=== PATIENT | female | born 1965 | race Caucasian/White ===

== ENCOUNTER 2019-10-30 11:17 | Emergency (ER) | payer BC ==
[~2019-10-30] VITALS: Ht 167.6 cm; Wt 74.8 kg
--- NOTE | 2019-10-30 11:25 | NUR ---
Patient ambulated with stable gait. Speech is clear, speaks in complete sentences. No acute neuro deficits. Patient came for c/o GARCIA/Migraine, denies any n/v, but reports sensitivity to light. Respiratory even and unlabored, no cough no sob. Patient in bed at lowest position, sr upx2, call light within reach. Fall and safety precautions implemented per protocol.
[2019-10-30] MEDS ORDERED: ALPR0.5T8 PO (11:30)
[2019-10-30] MEDS ORDERED: IV NORMAL SALINE 500 ML BAG IV ONE (11:45)
[2019-10-30] MEDS ORDERED: DEXAMETHASONE SOD PHOSPHATE 4 MG INJ IV ONE (11:45)
[2019-10-30] MEDS ORDERED: LORAZEPAM 2 MG/1 ML VIAL IV ONE (11:45)
[2019-10-30] MEDS ORDERED: PROCHLORPERAZINE EDISYLATE 10 MG/2 ML VIAL IV ONE (11:45)
[2019-10-30] MEDS ORDERED: PROCHLORPERAZINE EDISYLATE 10 MG/2 ML VIAL ONE (11:46)
[2019-10-30] MEDS ORDERED: DEXAMETHASONE SOD PHOSPHATE 10 MG INJ ONE (11:46)
[2019-10-30] MEDS ORDERED: LORAZEPAM 2 MG/1 ML VIAL ONE (11:47)
[2019-10-30 12:05] LABS: BASOPHILS % (AUTO) 0.6 % (0.0-2.0); EOSINOPHILS # (AUTO) 0.1 K/uL (0.0-0.7); EOSINOPHILS % (AUTO) 1.7 % (0.0-7.0); HEMATOCRIT 41.1 % (31.2-41.9); HEMOGLOBIN 13.7 g/dL (10.9-14.3); LYMPHOCYTES % (AUTO) 26.6 % (20.5-51.5); MEAN CORPUSCULAR HEMOGLOBIN 31.2 uug (24.7-32.8); MEAN CORPUSCULAR HGB CONC 33 g/dL (32.3-35.6); MEAN CORPUSCULAR VOLUME 93.5 fL (75.5-95.3); MONOCYTES # (AUTO) 0.3 K/uL (2.0-10.0); NEUTROPHILS # (AUTO) 2.4 K/uL (1.8-8.9); NEUTROPHILS % (AUTO) 64.1 % (38.5-71.5); PLATELET COUNT (AUTO) 124 K/uL (179-408); WHITE BLOOD COUNT (AUTO) 3.8 K/uL (3.8-11.8)
[2019-10-30 12:15] LABS: CREATININE 0.6 mg/dL (0.6-1.3); POTASSIUM 3.9 mmol/L (3.5-5.1)
[2019-10-30 12:20] LABS: BILIRUBIN,TOTAL 0.6 mg/dL (0.2-1.0); MAGNESIUM 2.6 mg/dL (1.8-2.4); PHOSPHOROUS 3.3 mg/dL (2.5-4.9); TOTAL PROTEIN, SERUM 6.7 g/dL (6.4-8.2)
--- NOTE | 2019-10-30 12:44 | NUR ---
Patient discharged to home in stable condition. Written and verbal after care instructions given. Patient verbalizes understanding of instructions. Stressed follow up or return to ER for worsening s/s. IV removed. Catheter intact and site benign. Pressure and 4x4 gauze applied to site. No bleeding noted.
[2019-10-30 12:45] VITALS: BP 135/83
== END 2019-10-30 12:38 | disposition home or self-care (01) ==
LOC: ER 11:17
DX: R51 Headache (principal)
CPT/HCPCS: 36415; 80053; 83735; 84100; 85025; 96361; 96374; 96375; 99284; J0780; J1100; J2060; A4663; J7030